=== PATIENT | female | born 1940 | race Caucasian/White ===

== ENCOUNTER 2017-02-08 10:19 | Emergency (ER) | payer OTHER ==
[2017-02-08 10:27] VITALS: PULSE 61; RESP 18; O2SAT 98
--- NOTE | 2017-02-08 10:43 | C.PDOC ---
History Of Present Illness R THUMB INJURY 5 DAYS AGO W NEW ONSET REDNESS SWELLING X 3 DAYS. PS THUMB ACCIDENTALLY STUCK IN MOUSE TRAP. INCR PAIN, REDNESS. NO DC, FEVER. OTHER ASSOC SX EXAM NONTOXIC EXT R THUMB +SWELLING, REDNESS DISTAL THUMB. NO FOCAL FLUCTUANCE. AROM WO DIFF. NAIL INTACT, LIFTED. NO LYMPHANGITIS REMAINDER NEG Time Seen by Provider: 02/08/17 10:37 Chief Complaint (Nursing): Upper Extremity Problem/Injury History Per: Patient History/Exam Limitations: no limitations Onset/Duration Of Symptoms: Days (onset 5 days ago, swelling 3 days ago) Current Symptoms Are (Timing): Still Present Past Medical History Reviewed: Historical Data, Nursing Documentation, Vital Signs Vital Signs: Last Vital Signs Temp 97.4 F L 02/08/17 11:15 Pulse 61 02/08/17 11:15 Resp 18 02/08/17 11:15 BP 188/74 H 02/08/17 11:15 Pulse Ox 98 02/08/17 11:16 - Medical History PMH: HTN Family History: States: No Known Family Hx - Social History Hx Alcohol Use: No Hx Substance Use: No - Immunization History Hx Tetanus Toxoid Vaccination: No Hx Influenza Vaccination: No Hx Pneumococcal Vaccination: No Review Of Systems Except As Marked, All Systems Reviewed And Found Negative. Constitutional: Negative for: Fever Musculoskeletal: Positive for: Other ((+) right thumb injury, redness and swelling). Negative for: Neck Pain, Shoulder Pain, Arm Pain Neurological: Negative for: Weakness, Numbness Physical Exam - Physical Exam Appears: Non-toxic, No Acute Distress Skin: Warm, Dry, No Rash Head: Atraumatic, Normacephalic Oral Mucosa: Moist Respiratory: Normal Breath Sounds Extremity: Normal ROM (right thumb, AROM w/o difficulty), Capillary Refill (<2 secs), Other (Right Thumb - Swelling and redness to the distal thumb. No fical fluctuance. Nail intact, lifted. No lymphangitis) Neurological/Psych: Oriented x3, Normal Speech, Normal Motor, Normal Sensation ED Course And Treatment O2 Sat by Pulse Oximetry: 98 (RA) Pulse Ox Interpretation: Normal - Other Rad X-Ray - Hand, Right Thumb X-Ray: Viewed By Me, Read By Radiologist Interpretation: PROCEDURE: Right Thumb radiographs. HISTORY: TRAUMA. COMPARISON: None. TECHNIQUE: AP radiograph of the right hand, as well as spot oblique and lateral images of thumb were obtained. FINDINGS: RIGHT THUMB : No fracture of the right thumb noted. There is spurring along the radial aspect of the 1st interphalangeal joint it space narrowing of the 1st metacarpal phalangeal joint space. So joint-space narrowing and minimal ulnar- sided spurring of the 1st carpal metacarpal joint and probably also along the radial aspect of the same. No fractures or dislocations of the thumb noted. Also some mild volar spurring of the 1st interphalangeal joint. Partially visualized is orthopedic hardware transfixing a distal radial comminuted fracture. JOINTS: As above. SOFT TISSUES: Normal. OTHER FINDINGS: None. IMPRESSION: No fracture of the thumb. 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 No fracture dislocation here. Distal radial orthopedic transfixation of a prior comminuted fracture here. Progress - Re-Evaluation Re-evaluation Note: 02/08/17 10:44 D/W DR HONEYCUTT HAND PROJECT COACH: AWARE OF ER FINDINGS, ADVISES NO I&D DUE TO LACK OF FLUCTUANCE. RECOMMENDS ADMISSION FOR IV ABX, ID EVAL. 02/08/17 11:03 VIA TRANS PT ADVISED NEED FOR ADMISSION,STATES CANNOT BE ADMITTED @ THIS TIME. EXPRESSES VERBAL UNDERSTANDING OF RISKS BENEFITS. AMA - Data Reviewed Data Reviewed: Diagnostic imaging Medical Decision Making Medical Decision Making: PLAN: * X-Ray - Hand, Right Thumb * Bactrim PO Disposition Counseled Patient/Family Regarding: Studies Performed, Diagnosis, Need For Followup, Rx Given - Disposition Referrals: Jayjay Honeycutt MD [Staff Provider] - YOUR,PMD [Other] Disposition: AGAINST MEDICAL ADVICE Disposition Time: 11:04 Condition: GOOD Additional Instructions: USTED TURCIOS SIDO INFORMADO DE LA NECESIDAD DE ADMISIN PARA ESCAMILLA CONDICIN. USTED TURCIOS EXPRESADO LA COMPRENSIN VERBAL DE [place] RIESGOS DE [place]ANDON[place], INCLUIDAS LA DISCAPACIDAD, EL DETERIORO Y LA MUERTE. [facility] SE PRESCRIBE. SIGUE CON TU PMD CUANTO ANTES. Prescriptions: Sulfamethoxazole/Trimethoprim [Bactrim DS 800 mg-160 mg] 1 tab PO BID #14 tab Instructions: Paronychia (ED), Against Medical Advice (ED) Forms: [employer] (Italian) Print Language: SWEDISH - Clinical Impression Clinical Impression: Paronychia, Cellulitis of thumb - Scribe Statement The provider has reviewed the documentation as recorded by the Jessicaiblala Meyer Provider Attestation: All medical record entries made by the Tonny were at my direction and personally dictated by me. I have reviewed the chart and agree that the record accurately reflects my personal performance of the history, physical exam, medical decision making, and the department course for this patient. I have also personally directed, reviewed, and agree with the discharge instructions and disposition.
[2017-02-08] MEDS ORDERED: Tmp-Smz 800 mg-160 mg DS Tab PO STA (11:08)
[2017-02-08] MEDS ORDERED: Tmp-Smz 800 mg-160 mg DS Tab ONE (11:13)
[2017-02-08 11:21] VITALS: BP 188/74; TEMP 97.4
--- NOTE | 2017-02-08 12:38 | RAD ---
PROCEDURE: Right Thumb radiographs. HISTORY: TRAUMA COMPARISON: None. TECHNIQUE: AP radiograph of the right hand, as well as spot oblique and lateral images of thumb were obtained. FINDINGS: RIGHT THUMB: No fracture of the right thumb noted. There is spurring along the radial aspect of the 1st interphalangeal joint it space narrowing of the 1st metacarpal phalangeal joint space. So joint-space narrowing and minimal ulnar-sided spurring of the 1st carpal metacarpal joint and probably also along the radial aspect of the same. No fractures or dislocations of the thumb noted. Also some mild volar spurring of the 1st interphalangeal joint. Partially visualized is orthopedic hardware transfixing a distal radial comminuted fracture. JOINTS: As above SOFT TISSUES: Normal. OTHER FINDINGS: None. IMPRESSION: No fracture of the thumb. 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 No fracture dislocation here Distal radial orthopedic transfixation of a prior comminuted fracture here.
== END 2017-02-08 11:30 | disposition left against medical advice (07) ==
LOC: C.ER 10:19
DX: L03.011 Cellulitis of right finger (principal)